=== PATIENT | male | born 2000 | race Two or more races ===

== ENCOUNTER 2024-06-26 16:38 | Emergency (ER) | payer MEDICAID, SELFPAY ==
[2024-06-26 17:28] VITALS: BMI 17.6
[2024-06-26 17:31] VITALS: BP 139/82; PULSE 104; RESP 16; TEMP 36.4; O2SAT 96
== END 2024-06-26 17:48 | disposition left against medical advice (07) ==
LOC: SERX 18:34
PROVIDERS: Emergency Provider Emergency Medicine
DX: Z53.21 Procedure and treatment not carried out due to patient leaving prior to being seen by health care provider (principal)
CPT/HCPCS: 99281

== ENCOUNTER 2024-06-26 23:27 | Emergency (ER) | payer MEDICAID, SELFPAY ==
[2024-06-26 23:28] VITALS: PULSE 99; RESP 18; O2SAT 99; BMI 28.3
--- NOTE | 2024-06-27 01:21 | PC.NURSE ---
[facility] N/A [id number], [id number], 0021
== END 2024-06-27 01:22 | disposition left against medical advice (07) ==
LOC: SERX 06-27 01:19
PROVIDERS: Emergency Provider Emergency Medicine
DX: Z53.21 Procedure and treatment not carried out due to patient leaving prior to being seen by health care provider (principal)

== ENCOUNTER 2024-12-02 18:20 | Emergency (ER) | payer MEDICAID, SELFPAY ==
[2024-12-02 18:27] VITALS: PULSE 72; RESP 18; O2SAT 98
[2024-12-02 20:06] VITALS: BP 117/68; PULSE 73; RESP 16; TEMP 36.8; O2SAT 95
--- NOTE | 2024-12-02 20:32 | EDNOTE_ITS ---
Lower Extremity Injury RME/HPI General Chief Complaint: Extremity Injury, Lower Stated Complaint: R FOOT PAIN Time Seen by Provider: 12/02/24 20:15 Arrival date/time: 12/02/24 18:20 RME / HPI RME / HPI Narrative: 23-year-old Syrian-speaking male presents to the ED with a complaint of right ankle and foot pain secondary to an injury he sustained on Monday night. Unknown context of injury as he was drinking. He has also been drinking today. He denies any other injuries. Related Data Previous Rx's ?Medication ?Instructions ?Recorded ibuprofen 600 mg tablet 600 mg PO Q8H PRN pain #21 t abs 12/02/24 Review of Systems Review of Systems Systems Reviewed: All systems reviewed, normal except as documented Past Medical History Social History SMOKING STATUS: Current some day smoker ED Exam Narrative Physical exam: Syrian-speaking 23-year-old male, sitting in wheelchair, right ankle and foot swelling with tenderness to the medial and lateral malleolus with decreased range of motion. Pain with inversion/eversion of the ankle and foot. Pain with plantarflexion, dorsiflexion. Tenderness to the metatarsal areas as well as swelling. Unable to bear weight. Course Course Course Narrative: Right ankle XR: Distal fibula fracture nondisplaced. Short leg posterior splint and crutches. Orders Category Date Time Status Crutches .NOW Care 12/02/24 21:21 Ordered Splint / Immobilizer STAT Care 12/02/24 21:21 Ordered XR ankle comp RT min 3V Stat Exams 12/02/24 20:34 Taken XR foot comp RT min 3V Stat Exams 12/02/24 20:34 Taken Ibuprofen Tab [Motrin Tab] Med 12/02/24 20:34 Pending 600 mg PO X1 ONE Vital Signs Vital signs: Vital Signs Temperature 98.3 F 12/02/24 20:06 Pulse Rate 73 12/02/24 20:06 Respiratory Rate 16 12/02/24 20:06 Blood Pressure 117/68 12/02/24 20:06 Pulse Oximetry (%) 95 12/02/24 20:06 Oxygen Delivery Method Room Air 12/02/24 20:06 Extremity Injury, Lower Medications / Prescriptions Medication administrations:: Medication Administration History Ibuprofen (Ibuprofen Tab 600 Mg Tablet) 600 mg PO X1 ONE Stop: 12/02/24 20:35 Discharge Plan Plan Patient Disposition: HOME (Self Care) Discharge Disposition comment: Stable and improved Prescriptions/Referrals Prescriptions/Med Rec: New ibuprofen 600 mg tablet 600 mg PO Q8H PRN (Reason: pain) Qty: 21 0RF Referrals: srivastatin [Other] - In 1 week No Primary/Family,Physician [Primary Care Provider] - In 1 week Bakari Caballero MD [Physician] - In 1 week (Contact their office on Monday to schedule an appointment.) Problem List Clinical Impression: Ankle fracture Patient/Caregiver Discharge Instructions Education Materials: ED Fracture, Lower Extremity Additional Instructions: Genie un seguimiento con rubalcava medico de atencion primaria en 24 a 48 horas. Regresar al departamento de emergencias por cualquier sintoma nuevo o que empeo re. Print Language: Syrian Stand Alone Forms: Linette Award Info., Patient Portal Info Letter PA/MECHANICAL DESIGN TECHNICIAN Supervising Physician PA/MECHANICAL DESIGN TECHNICIAN Supervising Physician: Dr. Brownlee
--- NOTE | 2024-12-02 20:34 | XR_ITS ---
EXAMINATION: Ankle, right 3 views . Technique: Ankle AP, oblique, lateral 3 views Date and time of exam: December 02, 2024 2106 hours INDICATIONS: Injury to the ankle 2 days ago, ankle pain FINDINGS: Acute fracture distal fibular shaft without significant offset No ankle dislocation IMPRESSION: Acute fracture distal fibular shaft
--- NOTE | 2024-12-02 20:34 | XR_ITS ---
Examination: Foot, right, 3 views Technique: AP, oblique, lateral views foot, 3 views Date and time of exam: 2105 hours INDICATIONS: Injury to foot 2 days ago, foot pain. FINDINGS: No acute foot fracture Please see the ankle report No dislocation or foreign body IMPRESSION: No acute foot fracture
[2024-12-02 22:03] VITALS: BP 124/76; PULSE 67; RESP 17; TEMP 36.9; O2SAT 100
== END 2024-12-02 22:04 | disposition home or self-care (01) ==
PROVIDERS: Emergency Provider Emergency Medicine
DX: S82.891A Other fracture of right lower leg, initial encounter for closed fracture (principal); S99.921A Unspecified injury of right foot, initial encounter; X50.1XXA Overexertion from prolonged static or awkward postures, initial encounter
CPT/HCPCS: 29515; 73610; 73630; 99283

== ENCOUNTER 2025-02-03 13:24 | Emergency (ER) | payer MEDICAID, SELFPAY ==
[2025-02-03 13:34] VITALS: BP 126/75; PULSE 65; RESP 18; TEMP 36.8; O2SAT 97
--- NOTE | 2025-02-03 13:47 | XR_ITS ---
EXAMINATION: Ankle, right 3 views . Technique: Ankle AP, oblique, lateral 3 views Date and time of exam: February 03, 2025 1423 hours INDICATIONS: Acute ankle fracture December 02, 2024, postop reduction internal fixation of this ankle fracture FINDINGS: Significant healing fracture distal femoral shaft with stable satisfactory IMPRESSION: Significant healing fracture distal fibular shaft with stable and satisfactory alignment
--- NOTE | 2025-02-03 13:48 | PD.EDANKLE ---
Lower Extremity Injury RME/HPI General Chief Complaint: Ankle/Foot Injury Stated Complaint: Right ankle, post reduction with internal fixation Time Seen by Provider: 02/03/25 13:35 Source: patient Arrival date/time: 02/03/25 13:24 23-year-old male with no known medical history presents to the emergency room needing x-rays of his right ankle after postreduction with internal fixation was done last month. Patient states his recreation program specialist sent him here for imaging so that he can see him on with the results. Mode of arrival: ambulatory Limitations: no limitations Related Data Previous Rx's ?Medication ?Instructions ?Recorded ibuprofen 600 mg tablet 600 mg PO Q8H PRN pain #21 tabs 12/02/24 Allergies Allergy/AdvReac Type Severity Reaction Status Date / Time No Known Allergies Allergy Verified 02/03/25 13:29 Review of Systems Review of Systems Systems Reviewed: All systems reviewed, normal except as documented Constitutional Constitutional: Reports system reviewed and no additional complaints, except as documented, Denies fatigue, Denies fever(s), Denies headache(s) and Denies weakness Eyes Eyes: Reports system reviewed and no additional complaints, except as documented, Denies blurry vision and Denies change in vision ENT Ears, Nose, Mouth, and Throat: Reports system reviewed and no additional complaints, except as documented, Denies otalgia, Denies headache(s), Denies nasal congestion, Denies throat swelling and Denies vertigo Cardiovascular Cardiovascular: Reports system reviewed and no additional complaints, except as documented, Denies chest pain, Denies dyspnea and Denies dyspnea on exertion Respiratory Respiratory: Reports system reviewed and no additional complaints, except as documented, Denies chest congestion, Denies cough, Denies dyspnea, Denies dyspnea on exertion and Denies wheezing Gastrointestinal Gastrointestinal: Reports system reviewed and no additional complaints, except as documented, Denies abdominal pain, Denies cramping, Denies nausea and Denies vomiting Genitourinary Genitourinary: Reports system reviewed and no additional complaints, except as documented, Denies dysuria and Denies hematuria Musculoskeletal Musculoskeletal: Reports system reviewed and no additional complaints, except as documented, Reports arthralgias, Denies back pain and Reports joint swelling Integumentary/Breasts Skin/Breast: Reports system reviewed and no additional complaints, except as documented and Denies wounds Neurologic Neurologic: Reports system reviewed and no additional complaints, except as documented, Denies confusion, Denies headache(s), Denies lack of coordination, Denies vertigo and Denies weakness Psychiatric Psychiatric: Reports system reviewed and no additional complaints, except as documented, Denies anxiety, Denies confusion, Denies depression, Denies paranoia, Denies suicidal ideation and Denies tactile hallucinations Endocrine Endocrine: Reports system reviewed and no additional complaints, except as documented and Denies fatigue Hematologic/Lymphatic Hematologic/Lymphatic: Reports system reviewed and no additional complaints, except as documented and Denies lymphadenopathy Allergic/Immunologic Allergic/Immunologic: Reports system reviewed and no additional complaints, except as documented, Denies throat swelling, Denies urticaria and Denies wheezing Past Medical History Past Medical History NEUROLOGIC: Negative Neurological Disorders CARDIAC: Negative Cardiac Disorders or Congestive Heart Failure RESPIRATORY: Negative Chronic Obstructive Pulmonary Disease (COPD) GENITOURINARY: Negative Renal Disease ENDOCRINE: Negative Diabetes Mellitus Type 1 or Diabetes Mellitus Type 2 Social History SMOKING STATUS: Current every day smoker ED Exam General Limitations: Present no limitations General appearance: Present alert and in no apparent distress Head Head exam: Present atraumatic Eye Eye exam: Present normal appearance, PERRL and EOMI ENT ENT exam: Present normal exam, normal oropharynx and mucous membranes moist Neck Neck exam: Present normal inspection, full ROM and trachea midline Chest Chest inspection: Present normal inspection and symmetric chest wall rise Respiratory Respiratory exam: Present normal lung sounds bilaterally Cardiovascular Cardiovascular exam: Present regular rate, normal rhythm and normal heart sounds Abdominal Exam Abdominal exam: Present soft and normal bowel sounds Extremities Exam Extremities exam: Present normal inspection and full ROM Back Exam Back exam: Present normal inspection and full ROM Neurological Exam Neurological exam: Present alert, oriented X3 and CN II-XII intact Psychiatric Psychiatric exam: Present normal affect and normal mood Skin Skin exam: Present warm, dry, intact and normal color Course Quality Measures none Orders Category Date Time Status XR ankle comp RT min 3V Stat Exams 02/03/25 13:47 Completed Vital Signs Vital signs: Vital Signs Temperature 98.3 F 02/03/25 13:34 Pulse Rate 65 02/03/25 13:34 Respiratory Rate 18 02/03/25 13:34 Blood Pressure 126/75 02/03/25 13:34 Pulse Oximetry (%) 97 02/03/25 13:34 Oxygen Delivery Method Room Air 02/03/25 13:34 Extremity Injury, Lower MDM Narrative MDM Narrative:: 23-year-old male with no known medical history presents to the emergency room needing x-rays of his right ankle after postreduction with internal fixation was done last month. Patient states his recreation program specialist sent him here for imaging so that he can see him on with the results. Patient is hemodynamically stable and in no apparent distress. Patient is able to ambulate with his crutches. Patient has a cast on his right foot. Patient states he has an appointment with his recreation program specialist this and is just here for x-rays. X-rays were taken and the patient was discharged and will follow-up with his recreation program specialist this for further management Patient was discharged and educated to follow-up with primary care provider in the next 24 to 48 hours and return to the emergency room for any evidence of worsening signs or symptoms Patient data External records reviewed:: [facility] previous records Clinical information provided by:: patient Social determinants that could affect healthcare access:: none Patient has the following chronic illnesses:: No chronic illness How is presenting disease/condition affected by chronic disease/condition?: no chronic disease Evaluation data The following diagnostics were reviewed and interpreted by me:: lab results and radiology exam(s) Lab and/or radiology exams considered but not ordered:: Labs and radiology exams considered in order Interpretation Summary: X-ray right ankle-FINDINGS: Significant healing fracture distal femoral shaft with stable satisfactory IMPRESSION: Significant healing fracture distal fibular shaft with stable and satisfactory alignment Medications / Prescriptions Medications or Prescriptions considered but not ordered:: No medication given Medication administrations:: No medication given Consultations Consultation(s) initiated? (list below): No Diagnosis Extremity Injury, Lower Differential Diagnosis: ankle sprain and strain and ankle fracture Most likely diagnosis given after review of the tests above:: Ankle fracture Admission Indicated Admission indicated?: not indicated Admission Request Was there a request for admission?: No Disposition Plan Disposition Plan: Discharge Discharge Attestation Discharge Attestation: The patient and all family members were given an opportunity to ask questions and understood the discharge instructions. Discharge instructions specifically effects, indications for sooner follow up or return to the emergency department, and the expected course of current diagnosis. Patient condition: Stable Discharge Plan Plan Patient Disposition: HOME (Self Care) Discharge Disposition comment: Stable Prescriptions/Referrals Prescriptions/Med Rec: No Action ibuprofen 600 mg tablet 600 mg PO Q8H PRN (Reason: pain) Qty: 21 0RF Referrals: Orlando Peacock MD [Primary Care Provider] - In 1 week Problem List Clinical Impression: Ankle fracture Patient/Caregiver Discharge Instructions Education Materials: ED Fracture, Lower Extremity Additional Instructions: Please follow-up with your recreation program specialist this . A copy of your x-ray results was put in your discharge paperwork For any evidence of worsening signs or symptoms return to the emergency room immediately Print Language: Ukrainian Stand Alone Forms: Linette Award Info., Patient Portal Info Letter PA/NURSE UNIT MANAGER Supervising Physician PA/NURSE UNIT MANAGER Supervising Physician: Dr. Kodi MULLIGAN Attestation MD Attestation The patient was seen by the midlevel practitioner. I, the co-signing physician, was present during the entire ER visit. While I did not physically examine the patient, I was available for consultation as needed. I agree with the plan and documentation.
== END 2025-02-03 16:08 | disposition home or self-care (01) ==
PROVIDERS: Emergency Provider Family Medicine; PCP Family Medicine
DX: S82.891D Other fracture of right lower leg, subsequent encounter for closed fracture with routine healing (principal); F17.210 Nicotine dependence, cigarettes, uncomplicated; X58.XXXD Exposure to other specified factors, subsequent encounter
CPT/HCPCS: 73610; 99283

== ENCOUNTER 2025-02-24 20:57 | Emergency (ER) | payer MEDICAID, SELFPAY ==
--- NOTE | 2025-02-24 21:01 | EDNOTE_ITS ---
ED Alcohol RME/HPI General Chief Complaint: Shortness of Breath/Dyspnea Stated Complaint: DIZZINESS Arrival date/time: 02/24/25 20:57 RME / HPI RME / HPI narrative: See [facility] for Dr. Olson's HPI Documentation. Related Data Previous Rx's ?Medication ?Instructions ?Recorded ibuprofen 600 mg tablet 600 mg PO Q8H PRN pain #21 t abs 12/02/24 Allergies Allergy/AdvReac Type Severity Reaction Status Date / Time No Known Allergies Allergy Verified 02/24/25 21:12 Review of Systems Review of Systems Systems Reviewed: All systems reviewed, normal except as documented Past Medical History Social History SMOKING STATUS: Current every day smoker ALCOHOL: Current ED Exam Narrative Physical exam: See [facility] for Dr. Olson's Physical Exam Documentation. Course Quality Measures none Orders Category Date Time Status Bedside COVID-19 Antigen Test NOW Care 02/24/25 21:23 Completed Bedside Influenza A&B Antigen Test NOW Care 02/24/25 21:23 Completed Saline [Insert IV] NOW Care 02/24/25 21:23 Completed Straight [In and Out Catheter] X1 Care 02/24/25 21:[address] abdomen pelvis wo con Stat Exams 02/24/25 21:25 Ordered XR chest 1V portable Stat Exams 02/24/25 21:25 Completed Diazepam Inj [Valium Inj] Med 02/24/25 21:23 Discontinued 5 mg IVP X1 ONE Famotidine Inj [Pepcid Inj] Med 02/24/25 21:23 Discontinued 20 mg IVP X1 ONE Ondansetron Inj [Zofran Inj] Med 02/24/25 21:23 Discontinued 4 mg IVP X1 ONE Pantoprazole Inj [Protonix Inj] Med 02/24/25 21:23 Discontinued 40 mg IVP X1 ONE Sodium Chloride 0.9% 1000 ml [Ns] 1,000 ml Med 02/24/25 21:23 Discontinued IV 999 mls/hr Sodium Chloride 0.9% 1000 ml [Ns] 1,000 ml Med 02/24/25 21:24 Discontinued IV 999 mls/hr Thiamine Inj [Vitamin B-1 Inj] Med 02/24/25 21:23 Discontinued 100 mg IVP X1 ONE Vital Signs Vital signs: Vital Signs Temperature 99.3 F 02/24/25 21:12 Pulse Rate 119 H 02/24/25 21:12 Respiratory Rate 19 02/24/25 21:12 Blood Pressure 110/61 02/24/25 21:12 Pulse Oximetry (%) 96 02/24/25 21:12 Oxygen Delivery Method Room Air 02/24/25 21:12 Discharge Plan Plan Patient Disposition: Left Against Medical Advice Prescriptions/Referrals Prescriptions/Med Rec: No Action ibuprofen 600 mg tablet 600 mg PO Q8H PRN (Reason: pain) Qty: 21 0RF Referrals: No Primary/Family,Physician [Primary Care Provider] - In 1 week Problem List Clinical Impression: Tachycardia Patient/Caregiver Discharge Instructions Print Language: [place]an Alcohol MDM Narrative MDM Narrative: Scribe Attestation: I, Ashley Solano, am scribing for and in the presence of Dr. Olson. Provider Notation: Although this document has been carefully reviewed, there may still be some phonetic and other typographical errors. These errors are purely grammatical due to imperfections in the software program and should not be construed in any way to compromise the substance of the patient's medical care during this visit. This section includes all my notes and documentations, including HPI, PE, and ED course. 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 Patient declined to answer any questions. Patient requested discharge AGAINST MEDICAL ADVICE. ROS: All negative except as documented in HPI. Physical Exam: General: Alert and oriented. No acute distress. Eyes: Conjunctivae and lids clear. EOMI. PERRL. ENT: No nasal congestion. Neck: Supple. Heart: Sinus tachycardia noted. Lungs: No respiratory distress. Good air movement. No rhonchi, wheezing, rales. Abdomen: Soft and nontender. Normal bowel sounds. No distension. No rebound or guarding. Legs: No clubbing, cyanosis, edema. Skin: Warm and dry. Neuro: Alert and oriented X 3. Cranial Nerves II-XII grossly intact. No peripheral motor deficits. I reviewed EMS notes. I reviewed all diagnostic test results: My interpretation of the chest x-ray is: NAD. Patient requested discharge AGAINST MEDICAL ADVICE. Discussed potential risks, including missing serious diagnoses/treatments, inc luding sudden . Patient understood but still requested discharge AGAINST MEDICAL ADVICE. We couldn't change his mind. Patient's family/friend picked him up. Feliz Olson MD Patient data External records reviewed:: [facility] previous records (Reviewed prior ED records from 02/03/25. Patient was seen for Ankle fracture.) and EMS form Clinical information provided by:: patient and EMS Social determinants that could affect healthcare access:: alcohol use Patient has the following chronic illnesses:: None reported. How is presenting disease/condition affected by chronic disease/condition?: no chronic disease Evaluation data The following diagnostics were reviewed and interpreted by me:: radiology exam(s) Lab and/or radiology exams considered but not ordered:: None Interpretation Summary: I reviewed all diagnostic test results: My interpretation of the chest x-ray is: NAD. Patient requested discharge AGAINST MEDICAL ADVICE. Discussed potential risks, including missing serious diagnoses/treatments, including sudden . Patient understood but still requested discharge AGAINST MEDICAL ADVICE. We couldn't change his mind. Patient's family/friend picked him up. Medications / Prescriptions Medications or Prescriptions considered but not ordered:: None Medication administrations:: Medication Administration History Discontinued Medications Diazepam (Diazepam Inj 5 Mg/Ml Vial 2 Ml) 5 mg IVP X1 ONE Stop: 02/24/25 21:24 Famotidine (Famotidine Inj 10 Mg/Ml Vial 2 Ml) 20 mg IVP X1 ONE Stop: 02/24/25 21:24 Sodium Chloride (Ns) 1,000 mls @ 999 mls/hr IV .Q1H1M ONE Stop: 02/24/25 22:23 Sodium Chloride (Ns) 1,000 mls @ 999 mls/hr IV .Q1H1M ONE Stop: 02/24/25 22:24 Ondansetron HCl (Ondansetron Inj 2 Mg/Ml Inj 2 Ml) 4 mg IVP X1 ONE; Protocol Stop: 02/24/25 21:24 Pantoprazole Sodium (Pantoprazole Inj 40 Mg Vial) 40 mg IVP X1 ONE Stop: 02/24/25 21:24 Thiamine HCl (Thiamine Inj 100 Mg/Ml Vial 2 Ml) 100 mg IVP X1 ONE Stop: 02/24/25 21:24 Patient requested discharge AGAINST MEDICAL ADVICE. Discussed potential risks, including missing serious diagnoses/treatments, including sudden . Patient understood but still requested discharge AGAINST MEDICAL ADVICE. We couldn't change his mind. Patient's family/friend picked him up. Consultations Consultation(s) initiated? (list below): No Diagnosis Differential diagnosis alcohol: alcohol withdrawal delirium, hypomagnesemia, alcohol intoxication, alcohol ketoacidosis, alcohol withdrawal syndrome and alcohol withdrawal seizure Most likely diagnosis given after review of the tests above:: Tachycardia Admission Indicated Admission indicated?: not indicated Explain why admission is indicated or not indicated:: Patient requested discharge AGAINST MEDICAL ADVICE. Discussed potential risks, including missing serious diagnoses/treatments, including sudden . Patient understood but still requested discharge AGAINST MEDICAL ADVICE. We couldn't change his mind. Patient's family/friend picked him up. Admission Request Was there a request for admission?: No Disposition Plan Disposition Plan: other (specify) (Patient left AMA.)
[2025-02-24 21:12] VITALS: BP 110/61; PULSE 119; PULSE 128; RESP 19; TEMP 37.4; O2SAT 96
--- NOTE | 2025-02-24 21:25 | XR_ITS ---
Examination: AP chest single view Technique one AP portable upright chest single view Date and time: February 24, 2025 2158 hrs. Indications: Chest pain shortness of breath beginning 2 days ago. Findings: Normal heart size. Lungs are clear. Old fracture left clavicle Impression: No active disease
--- NOTE | 2025-02-24 21:52 | PC.NURSE ---
PATIENT REFUSING IV, BLOOD DRAW, AND MEDICATIONS. PATIENT STATED THAT HE ONLY WANTED TO SLEEP AND HAD NO INTENTION OF COMING TO ED, THAT SOMEONE ELSE CALLED EMS. DR. CASTANEDA MADE AWARE.
== END 2025-02-24 22:46 | disposition left against medical advice (07) ==
PROVIDERS: Emergency Provider Emergency Medicine
DX: R00.0 Tachycardia, unspecified (principal); F17.210 Nicotine dependence, cigarettes, uncomplicated; Z53.29 Procedure and treatment not carried out because of patient's decision for other reasons
CPT/HCPCS: 71045; 80053; 80307; 80320; 81001; 82150; 82248; 83690; 83735; 85025; 85610; 85730; 99284; G0480

== ENCOUNTER → 2025-04-01 | Outpatient (CLI) | payer MEDICAID, SELFPAY ==
--- NOTE | 2025-04-01 16:23 | XR_ITS ---
EXAMINATION: Ankle, right 3 views. Technique: Ankle AP, oblique, lateral 3 views Date and time of exam: April 01, 2025, 1633 hours, comparison February 03, 2025 INDICATIONS: Ankle injury 3 months ago status post surgery November 2024 FINDINGS: Healed fracture distal fibular shaft with anatomic alignment Orthopedic hardware satisfactory position Impression: Healed fracture distal fibular shaft with anatomic alignment
== END | disposition home or self-care (01) ==
LOC: CDIM 16:10
PROVIDERS: Referring Provider Orthopaedic Surgery; Visit Provider Orthopaedic Surgery
DX: Z98.890 Other specified postprocedural states (principal); Z87.81 Personal history of (healed) traumatic fracture; S99.911S Unspecified injury of right ankle, sequela; X58.XXXS Exposure to other specified factors, sequela
CPT/HCPCS: 73610